=== PATIENT | male | born 1930 | race Two or more races ===

== ENCOUNTER 2016-11-03 13:40 | Emergency (ER) | payer OTHER ==
[~2016-11-03] VITALS: Ht 165.1 cm; Wt 63.0 kg
[2016-11-03 15:21] LABS: HEMATOCRIT 28.7 % (38.0-50.0); MCH 29.1 PG (29.0-34.0); MCHC 32.4 G/DL (30.0-36.0); MCV 89.7 FL (86-99); MEAN PLAT.VOLUME 12.4 uM^3 (9.0-12.4); PLATELET COUNT 202 K/uL (156-360); RBC DIS.WIDTH-CV 14.6 % (11.8-14.6); RBC DIS.WIDTH-SD 48.5 % (39-53)
[2016-11-03 15:31] LABS: CHLORIDE 101 mEq/L (99-109); POTASSIUM 4.9 mEq/L (3.7-5.4); SODIUM 135 mEq/L (136-147)
[2016-11-03 15:34] LABS: GLUCOSE 90 mg/dL (70-99)
[2016-11-03 15:35] LABS: ANION GAP 12 MEQ/L (2-14)
[2016-11-03 15:36] LABS: TOTAL BILIRUBIN 0.4 mg/dL (0.0-1.0)
[2016-11-03 15:37] LABS: ALKALINE PHOSPHATASE 70 IU/L (3-129); GFR ESTIMATE (CALCULATED) 32 mL/min/
[2016-11-03 15:38] LABS: UREA NITROGEN (BUN) 26 mg/dL (9-23)
[2016-11-03 15:41] LABS: LIPASE 49 U/L (1.0-51.0); TROP-I INTERPRETATION NEGATIVE; TROPONIN-I 0.02 ng/mL (0.0-0.30)
[2016-11-03 16:42] LABS: ADD MIUA? NO; BILIRUBIN NEGATIVE; BLOOD NEGATIVE; COLOR YELLOW ((YELLOW)); GLUCOSE (STRIP) NEGATIVE; KETONES 5; LEUKOCYTES NEGATIVE; NITRITE NEGATIVE; PROTEIN (STRIP) 30; SPECIFIC GRAVITY 1.013 (1.000-1.030); UCUL ADDED? NO; UROBILINOGEN 0.2 MG/DL (0.2-1.0)
[2016-11-03 17:20] LABS: INFLUENZA A VIRAL ANTIGEN NEGATIVE; INFLUENZA B VIRAL ANTIGEN NEGATIVE
[2016-11-03 18:22] VITALS: BP 198/98
== END 2016-11-03 18:33 | disposition left against medical advice (07) ==
LOC: EME 13:40
PROVIDERS: Emergency Medicine; Nurse Practitioner Family
DX: R53.1 Weakness (principal); N18.9 Chronic kidney disease, unspecified; R10.9 Unspecified abdominal pain
CPT/HCPCS: 71020; 80053; 81003; 83690; 84484; 85027; 87502; 93005; 99281; 99284; J7030